=== PATIENT | female | born 1980 | race Two or more races ===

== ENCOUNTER 2023-11-03 17:07 | Emergency (ER) | payer MEDICAID, OTHER ==
[~2023-11-03] VITALS: Ht 152.4 cm; Wt 63.6 kg
--- NOTE | 2023-11-03 17:14 | ED.PDOC ---
HPI Comments 42-year-old female brought in by ambulance from home for two episodes of witnessed syncope. Patient is status post bilateral breast reduction this morning at 8:00 a.m. and she left the hospital proximally at one in the afternoon. Patient took some ibuprofen for pain control. She has [place] but she said she did not use it. While seated on the toilet seat today she had two witnessed syncopal episodes without any fall or trauma or injury. She passed out in her own seat for approximately 1 minute. This happened twice witnessed by her . They called 911. Upon arrival patient was awake. There was no report of any seizure-like activity. There was no acute pain. Patient was slightly hypotensive. They started the patient on fluid hydration in route. The remainder of the vital signs were essentially unremarkable. Patient denies allergies Vitals BP: 110/72 HR: 90 Temp: 97.7 SPO2: 98% RA RR: 16 Past medical history Past surgical history cholecystectomy appendectomy and bilateral breast reduction REVIEW OF SYSTEMS: CONSTITUTIONAL: Denies acute: fever, diaphoresis, chills, HEAD: Denies acute: headache, photophobia Eyes: Denies acute: Double vision, vision loss, eye pain, eye discharge. EARS: Denies acute: tinnitus, hearing loss, ear discharge, ear pain, THROAT: Denies acute: sore throat, swelling, difficulty swallowing , pain with swallowing, change in voice. NECK: Denies acute: neck pain, neck swelling, stiff neck. HEART: Denies acute : chest pain, palpitations, LUNGS: Denies acute: SOB, wheezing, cough, hemoptysis ABDOMEN: Denies acute: abdominal pain, Nausea, Vomiting, diarrhea, melena , hematemesis, hematochezia SKIN: Denies acute: rash, redness, lesions, itchiness. EXTREMITIES: Denies acute: calf pain, numbness, tingling, weakness, denies pain in extremity. Denies acute: Low back pain. Neuro: Denies acute: focal neurological deficit, motor or sensory focal neurological deficit, tremors, seizure like activity, confusion, change in mental status, loss of bowel or bladder function, cauda equina like symptoms. : Denies acute: dysuria, hematuria, flank pain, increase in urinary frequency. PSYCH: Denies acute: hallucination, suicidal ideation, homicidal ideation. FEMALE: Denies acute: abnormal vaginal bleeding, foul odor, unusual discharge. PHYSICAL EXAM: General: no acute distress, awake and alert. Head: normocephalic, atraumatic. Neck: supple, trachea is midline, no swelling. Throat: Normal phonation. Eyes:, no erythema, no purulent discharge, no proptosis, no icterus. Heart: regular rate, regular rhythm, no significant murmur appreciated. Lungs: no apparent respiratory distress, Able to speak in full sentences. No wheezing, no rhonchi, no crackles. No stridors Clear to auscultation bilaterally. Abdomen: non tender to palpation, non distended, soft, no guarding, no rebound, + bowel sounds. Chest: Evaluation of the surgical site in the presence of telecommunications consultant the nurse. Normal postsurgical findings. There is mild contusion/bruising left breast greater than right. No active bleeding. There is wound dressing placed around the nipple and under bilateral breasts with gauze on top of the breast. Patient is wearing a support surgical bra. Neuro: Awake, Alert, oriented to name, self, situation, follows commands GCS=15. Speech is normal. Skin: no petechia, no purpura, no cyanosis, non-pale, not jaundice. Lower extremities: --no - Pitting edema no deformity, no focal swelling, no calf TTP. Makes eye contact. moves all four extremities. Face: no apparent facial droop. Time Seen by MD: 17:11 Reviewed Notes: Allergies Allergies: Coded Allergies: NO KNOWN ALLERGIES (Unverified , 11/03/23) Information Source: Patient, Emergency Med Personnel Was a procedure done? Was a procedure done?: No CP Differential Dx Differential Diagnosis: Electrolyte Disorder, N/A Differential Diagnosis: Other (Includes but not limited to thyroid disease, encephalopathy, electrolyte abnormality, sepsis, infection, intracranial pathology, drug adverse effects, arrhythmia, kidney insufficiency, ACS, CVA, malignancy, anemia) X-Ray, Labs, Meds, VS Vital Signs Date Time Temp Pulse Resp B/P (MAP) Pulse Ox O2 Delivery O2 Flow Rate FiO2 11/04/23 01:29 98.7 86 14 110/67 (81) 97 98.7 11/04/23 00:30 98.4 90 12 97/53 (68) 95 98.4 11/03/23 23:55 84 16 104/60 (75) 96 11/03/23 21:45 98 16 98 Room Air* 0 21 11/03/23 20:56 96 103/58 102 110/72 112 118/77 11/03/23 20:23 84 16 116/70 (85) 96 11/03/23 19:30 98.2 72 16 109/68 (82) 98 98.2 11/03/23 17:40 97.6 77 18 94/36 (55) 97 97.6 11/03/23 17:40 77 18 97 Room Air* 0 21 11/03/23 17:21 97.7 90 16 110/72 (85) 98 11/03/23 17:14 66 Lab Test 11/03/23 22:05 11/03/23 20:11 11/03/23 18:23 11/03/23 17:40 Range/Units Lactic Acid Level 2.6 *H 3.2 *H 0.4-2.0 mmol/L D-Dimer, Quantitative 0.31 0.0-0.49 mg/L FEU Troponin I High Sensitivity < 3 L < 3 L </=34 ng/L Urine Color Light-yellow Yellow Urine Clarity Clear Clear Urine pH 6.0 5.0-9.0 Urine Specific [place] 1.019 1.001-1.035 Urine Protein Negative Negative Urine Ketones Negative Negative Urine Blood Negative Negative /uL Urine Nitrite Negative Negative Urine Bilirubin Negative Negative Urine Urobilinogen Normal Negative mg/dL Urine Leukocyte Esterase 3+ Negative /uL Urine RBC 1 0 - 4 /hpf Urine WBC 10 0 - 5 /hpf Urine Squamous Epithelial Cells Few <5 /hpf Urine Bacteria Few H None Seen /hpf Urine Mucus Few None Seen Urine Glucose 2+ H Normal mg/dL Urine Test Negative Negative Test 11/03/23 17:24 Range/Units White Blood Count 19.1 H 4.4-10.8 10^3/uL Red Blood Count 4.12 4.0-5.20 10^6/uL Hemoglobin 11.7 L 12.2-16.2 g/dL Hematocrit 35.4 L 36.0-46.0 % Mean Corpuscular Volume 86.0 80.0-100.0 fL Mean Corpuscular Hemoglobin 28.4 28.0-32.0 pg Mean Corpuscular Hemoglobin Concent 33.0 32.0-36.0 g/dL Red Cell Distribution Width 14.3 11.8-14.3 % Platelet Count 239 140-450 10^3/uL Mean Platelet Volume 10.0 6.9-10.8 fL Neutrophils (%) (Auto) 94.0 H 37.0-80.0 % Lymphocytes (%) (Auto) 3.3 L 10.0-50.0 % Monocytes (%) (Auto) 2.6 0.0-12.0 % Eosinophils (%) (Auto) 0.0 0.0-7.0 % Basophils (%) (Auto) 0.1 0.0-2.0 % Neutrophils # (Auto) 18.0 H 1.6-8.6 10 ^3/uL Lymphocytes # (Auto) 0.6 0.4-5.4 10 ^3/uL Monocytes # (Auto) 0.5 0-1.3 10 ^3/uL Eosinophils # (Auto) 0 0-0.8 10 ^3/uL Basophils # (Auto) 0 0-0.2 10 ^3/uL Nucleated Red Blood Cells 0.0 % Sodium Level 141 136-145 mmol/L Potassium Level 4.7 3.5-5.1 mmol/L Chloride Level 114 H 98-107 mmol/L Carbon Dioxide Level 21 20-30 mmol/L Anion Gap 6 5-15 Blood Urea Nitrogen 14 9-23 mg/dL Creatinine 0.74 0.550-1.02 mg/dL Glomerular Filtration Rate Calc 104 >90 mL/min BUN/Creatinine Ratio 18.9 10.0-20.0 Serum Glucose 183 H 74-106 mg/dL Lactic Acid Level 2.8 *H 0.4-2.0 mmol/L Calcium Level 8.0 L 8.7-10.4 mg/dL Magnesium Level 1.7 1.6-2.6 mg/dL Total Bilirubin 0.5 0.2-1.0 mg/dL Aspartate Amino Transferase (AST) 78 H 13-40 U/L Alanine Aminotransferase (ALT) 111 H 7-40 U/L Alkaline Phosphatase 78 46-116 U/L Troponin I High Sensitivity < 3 L </=34 ng/L Total Protein 5.2 L 5.7-8.2 g/dL Albumin 3.5 3.2-4.8 g/dL [facility] [id number] [facility] [id number] Ph: [phone] DIAGNOSTIC IMAGING Diagnostic Imaging Report : [id number] Signed PATIENT: KYLER BHAT ACCT: [id number] UNIT: [id number] : 1980 LOC: ER ROOM / BED: / AGE / SEX: 42 / F ADM STATUS: REG ER SERVICE [id number] ORDERING PHYSICIAN: KAMRON LOPEZ DO PROCEDURE(s): CXRP - CHEST PORTABLE REASON: syncope ORDER NUMBER(s): [id number], ACCESSION NUMBER(s): [id number] CHEST RADIOGRAPH Indication:syncope Technique: Single frontal view of the chest was obtained Comparison: None FINDINGS: Lines and Tubes: None Lungs: No focal consolidation. Pleura: No effusion. No pneumothorax. Cardiomediastinal contours: Unremarkable Bones: No acute osseous abnormality. IMPRESSION: No acute cardiopulmonary disease. ATED BY: CYNDY PAREKH DO DICTATED DATE/TIME: 11/03/232047 SIGNED BY: CYNDY PAREKH DO SIGNED DATE/TIME: 11/03/232047 CC: Time of 1ST Reevaluation: 18:58 Reevaluation 1ST: Improved Time of 2ND Reevaluation: 18:58 (MS admit The case was discussed with the [place] admitting team (HPI, physical exam, labs and diagnostic tests that were available at the time of disposition, ED course, treatment plan) on the phone. They agreed to transfer the patient to their facility by [facility] for further evaluation and treatment of her presentation. Authorization [id number]. Dr. Su. ) Patient Education/Counseling: Diagnosis, Treatment Family Education/Counseling: No Family Present Comments Patient presented with the above HPI.--syncope/sepsis----workup was initiated. patient was found with the above mentioned diagnosis. Patient given NS, Hydrocodone, and Zosyn , Zofran Patient ED course and VS have been stabilized. Patient has been reassessed in the ED and remained in a stable condition. Pertinent incidental findings were discussed with the patient and/or family. Patient/family voices understanding and is agreeable with plan. Patient has been observed in the ED adequate length of time to insure improvement/stability. patient was admitted to the medicine team for further evaluation and treatment of their presentation. Departure 1 Departure Time of Disposition: 18:44 Impression: Primary Impression: Syncope Additional Impressions: Leukocytosis Elevated lactic acid level Sepsis Disposition: 02 SHORT TERM HOSPITAL Condition: Guarded Discharged With: Self Critical Care Note Critical Care Time?: Yes (45 min-critical care time only) I personally scribed for KAMRON LOPEZ DO ([email or web address]) on 11/03/23 at 18:11. Electronically submitted by Ruthie Limon ([facility]). I personally scribed for KAMRON LOPEZ DO ([email or web address]) on 11/03/23 at 20:50. Electronically submitted by Ruthie Limon ([facility] I personally scribed for KAMRON LOPEZ DO ([email or web address]) on 11/03/23 at 21:01. Electronically submitted by Ruthie Limon ([facility] KAMRON LOPEZ DO Nov 03, 2023 17:14
[2023-11-03 17:40] VITALS: PULSE 77; RESP 18; O2SAT 97
[2023-11-03 17:42] LABS: Basophils # (auto) 0 10 ^3/uL (0-0.2); Basophils % (auto) 0.1 % (0.0-2.0); Eosinophils # (auto) 0 10 ^3/uL (0-0.8); Hematocrit 35.4 % (36.0-46.0); Hemoglobin 11.7 g/dL (12.2-16.2); Lymphocytes # (auto) 0.6 10 ^3/uL (0.4-5.4); Lymphocytes % (auto) 3.3 % (10.0-50.0); Mean Corpuscular Hemoglobin 28.4 pg (28.0-32.0); Monocytes # (auto) 0.5 10 ^3/uL (0-1.3); Monocytes % (auto) 2.6 % (0.0-12.0); Platelet Count (auto) 239 10^3/uL (140-450); Red Blood Cells 4.12 10^6/uL (4.0-5.20); Red Cell Distribution Width 14.3 % (11.8-14.3); White Blood Cell 19.1 10^3/uL (4.4-10.8)
[2023-11-03] MEDS: SODIUM CHLORIDE 0.9% 500 ML IV ONE (17:48)
[2023-11-03 17:56] LABS: Alanine Aminotransferase 111 U/L (7-40); Albumin 3.5 g/dL (3.2-4.8); Alkaline Phosphatase 78 U/L (46-116); Anion Gap 6 (5-15); Aspartate Aminotransferase 78 U/L (13-40); BUN/Creatinine Ratio 18.9 (10.0-20.0); Bilirubin, Total 0.5 mg/dL (0.2-1.0); Blood Urea Nitrogen 14 mg/dL (9-23); Carbon Dioxide 21 mmol/L (20-30); Chloride 114 mmol/L (98-107); Glucose 183 mg/dL (74-106); Magnesium 1.7 mg/dL (1.6-2.6); Potassium 4.7 mmol/L (3.5-5.1); Sodium 141 mmol/L (136-145); Total Protein 5.2 g/dL (5.7-8.2)
[2023-11-03 18:43] LABS: Lactic Acid w/Reflex 2.8 mmol/L (0.4-2.0)
[2023-11-03] MEDS: PIPERACILLIN-TAZOB 3.375GM 100 ML IV ONE (18:54)
[2023-11-03] MEDS: SODIUM CHLORIDE 0.9% 1,000 ML IV ONE ×2 (18:55→21:00)
[2023-11-03] MEDS: HYDROcodone-ACET 5/325MG TAB PO ONE ×2 (18:57→23:47)
--- NOTE | 2023-11-03 19:09 | ECG ---
[facility] Test Date: 2023-11-03 Test Time: 17:14:43 Pat Name: KYLER BHAT Department: ER Room: Gender: F [employer] Machine Operator: : 1980 Requested By: KAMRON LOPEZ Order Number: [id number] Reading MD: Lei Garsia Measurements Intervals [place] Rate: 66 P: -5 MS: 145 QRS: 43 QRSD: 95 T: 25 QT: 396 QTc: 415 Interpretive Statements Sinus rhythm Low voltage, precordial leads Electronically Signed On 11-09-2023 9:26:54 PDT by Lei Garsia Please click the below link to view image of tracing.
[2023-11-03 20:26] LABS: Urine Bacteria FEW /hpf (None Seen); Urine Blood Negative /uL (Negative); Urine Clarity Clear (Clear); Urine Color Light-Yellow (Yellow); Urine Mucus FEW (None Seen); Urine Protein, UAD Negative (Negative); Urine Specific Gravity 1.019 (1.001-1.035); Urine Urobilinogen Normal (Negative); Urine WBC 10 /hpf (0 - 5)
--- NOTE | 2023-11-03 20:50 | DVH ---
CHEST RADIOGRAPH Indication:syncope Technique: Single frontal view of the chest was obtained Comparison: None FINDINGS: Lines and Tubes: None Lungs: No focal consolidation. Pleura: No effusion. No pneumothorax. Cardiomediastinal contours: Unremarkable Bones: No acute osseous abnormality. IMPRESSION: No acute cardiopulmonary disease.
[2023-11-03] MEDS: ONDANSETRON HCL 4 MG/2 ML VIAL IV ONE (21:00)
[2023-11-03 21:45] VITALS: PULSE 77; PULSE 98; RESP 16; RESP 18; O2SAT 97; O2SAT 98
[2023-11-03 23:05] LABS: Lactic Acid w/Reflex 2.6 mmol/L (0.4-2.0)
[2023-11-04 01:29] VITALS: BP 110/67; PULSE 86; RESP 14; TEMP 98.7; O2SAT 97
== END 2023-11-04 01:31 | disposition short-term general hospital (02) ==
LOC: ER 17:07 → EDBD 17:07 → ER 11-04 01:31
DX: A41.9 Sepsis, unspecified organism (principal); R55 Syncope and collapse; D72.829 Elevated white blood cell count, unspecified; R74.02 Elevation of levels of lactic acid dehydrogenase [LDH]; Z90.49 Acquired absence of other specified parts of digestive tract; Z32.02 Encounter for pregnancy test, result negative
CPT/HCPCS: 36415; 71045; 80053; 81001; 81025; 83605; 83735; 84484; 85025; 85379; 93005; 96361; 96365; 96375; 99285; J2405; J2543; J7030; J7040

== ENCOUNTER 2024-04-06 17:50 | Emergency (ER) | payer MEDICAID, OTHER | END 2024-04-06 18:11 | disposition left against medical advice (07) | LOC: ER 17:50 | DX: R68.89 Other general symptoms and signs (principal); Z53.21 Procedure and treatment not carried out due to patient leaving prior to being seen by health care provider ==